=== PATIENT | female | born 1960 | race Caucasian/White ===

== ENCOUNTER 2016-04-17 22:28 | Emergency (ER) | payer MEDICARE ==
[2016-04-17] MEDS ORDERED: 0.9% Sodium Chloride 1,000 ML IV ONE (22:40)
--- NOTE | 2016-04-17 22:43 | ED.REPORT ---
HPI-General Illness Date of Service Apr 17, 2016 ED Provider: Alfa Villarreal MD A 58 year old female with a history of previous suicide attempt via hydrocodone overdose (02/2016) presents to the ED unresponsive via private vehicle. A code BLUE was called when the patient arrived and she was rushed to a room. Her blood pressure and pulse were noted to be normal. The patient is unable to provide any meaningful history, although she responds to verbal stimuli. The patient's roommate is concerned that she may have "taken a bunch of pills." Nursing Notes Stated Complaint: OVERDOSE Nursing Notes Reviewed: Yes Allergies: Coded Allergies: salicylates (Verified Allergy, Unknown, unknown, 04/17/16) General Time Seen by MD: 22:29 Chief Complaint Other (Unresponsive) Hx Obtained From: Other family... (Roommate) Unable to Obtain Hx: Patient condition, Mental status Arrived By: Walk-in Sudden in Onset?: Yes Onset Occurred: Just prior to arrival Symptom Duration: Since onset Associated with: Denies: Fever Pertinent Negative: Relieved by nothing Context Related History: Reports Psychiatric history Recent Healthcare: Recent hospitalization Similar Sx Previous: Yes Past Medical History Past Medical History Suicide attempt by hydrocodone overdose (02/2016) Past Surgical History None reported Smoking History Unknown if Ever Smoker Social History Other Social History: Good social support Ambulatory Status Independent Review of Systems Unable to Obtain ROS Patient condition, Mental status Physical Exam Vital Signs Vital Signs Date Time Temp Pulse Resp B/P Pulse Ox O2 Delivery O2 Flow Rate FiO2 04/18/16 03:23 90 11 146/79 100 Room Air 04/17/16 23:10 36.0 92 11 166/88 100 Room Air Initial VS: Reviewed ENT: Conjunctiva normal, No scleral icterus Respiratory: Breath sounds normal, Clear to auscultation, No respiratory distress Cardiovascular: Regular rate & rhythm, Heart sounds normal Abdomen / GI: Soft, Non-tender Skin: Warm, Dry Alertness: Positive: Responds to verb stimuli Distress / Hydration: Positive: Dehydration mild Head / Eyes: Atraumatic, Normocephalic Eye Movement: Positive: Nystagmus present Pupils 4mm bilaterally Mental Status: Positive: Responds to verbal stim Drowsy but arousable Interpretation & Diagnostics URINE : Negative URINE DIPSTICK: 1.000 sp gravity 7 pH Trace Leukocytes Trace Protein Normal Glucose 4mg/dl Urobilinogen + Bilirubin Otherwise Negative URINE DRUG SCREEN: + Opiates Otherwise Negative Lab Results Interpretation Result Diagram: 04/17/16223904/17/162239 Test 04/17/16 22:40 04/17/16 22:44 04/17/16 22:59 White Blood Count 7.3th/mm3 (3.8-10.1) Red Blood Count 4.48mil/mm3 (3.90-5.20) Hemoglobin 13.1g/dL (12.0-15.6) Hematocrit 40.2% (35.0-46.0) Mean Corpuscular Volume 89.7fL (81-100) Mean Corpuscular Hemoglobin 29.2pg (27.0-35.0) Mean Corpuscular Hemoglobin Concent 32.6% (32.0-37.0) Red Cell Distribution Width 13.0% (12.3-15.4) Platelet Count 306bil/L (150-400) Sodium Level 139mEq/L (134-144) Potassium Level 3.6mEq/L (3.5-5.2) Chloride Level 99mEq/L (97-108) Carbon Dioxide Level 25mmol/L (18-29) Blood Urea Nitrogen 10mg/dL (6-24) Creatinine 0.83mg/dL (0.57-1.00) Estimat Glomerular Filtration Rate 103mL/min (>59) Glucose Level 115mg/dL (60-99) Calcium Level 9.2mg/dL (8.5-10.1) Total Bilirubin 0.2mg/dL (0.0-1.2) Aspartate Amino Transf (AST/SGOT) 20U/L (0-50) Alanine Aminotransferase (ALT/SGPT) 18U/L (0-32) Alkaline Phosphatase 71U/L (25-150) Total Protein 7.7g/dL (6.4-8.4) Albumin 4.6g/dL (3.4-5.0) Salicylates Level < 3.0ug/mL (30-250) Acetaminophen Level < 15.0ug/mL Rx (10-25) Alcohol, Quantitative < 10mg/dL (0-10) Hold Purple Top Tube Received (Received) Hold Blue Top Tube Received (Received) Hold Red Top Tube Received (Received) Hold [place] Top Tube Received (Received) Hold Contreras Top Tube Received (Received) Hold Urine Received (Received) ECG Interpretation ECG Interpretation: Sinus rhythm rate 86 Left axis deviation Time: 22:52 Interpreted by: ED physician Re-Eval/Medical Decision Med Decision/Clinical Course Patient brought in unresponsive after a possible overdose, found to not a taken an overdose, and to have had a prior admission with a hysterical conversion reaction and catatonia. This appears to be the case tonight. Worsening, however, she has responded to watch for bleeding and is now up talking and reasonably conversant. She denies taking an overdose, denies suicidal ideation, denies any recollection of things at the start of her episode, but acknowledges that this is happened to her before, resulting in that prior hospitalization. We talked for quite a while about the issues troubling her at the moment, and this particular mode of coping. She needs counseling help and understands that. She is referred via crisis to [facility]. Discharged now in stable and improved condition. Time of Eval: 22:37 Patient Status: Condition improved Re-Evaluation/Progress Note: Patient has become more responsive. She denies consuming medication, drugs, or alcohol this evening. Time of Eval: 22:45 Patient Status: Condition improved Re-Evaluation/Progress Note: Discussed patient's case with her boyfriend and roommate. Additional history obtained. Five weeks ago the patient was admitted to the hospital in [place], [place] for a similar episode of unresponsiveness with no known cause. This was after her recent suicide attempt. Time of Eval: 22:47 Patient Status: Condition improved Re-Evaluation/Progress Note: Narcan administered with no response. Time of Eval: 00:02 Patient Status: Condition improved Re-Evaluation/Progress Note: Patient opens her eyes and murmurs but continues to be excessively drowsy. Time of Eval: 02:20 Patient Status: Condition improved Re-Evaluation/Progress Note: Patient rechecked. She has fully regained consciousness. Had an in depth conversation regarding patient's lab results, diagnosis, and plan for discharge. Follow-up and return to the ER instructions given. Patient agrees with plan for care and all questions were addressed. Time of Eval: 02:48 Patient Status: Condition improved Re-Evaluation/Progress Note: Patient's roommate is concerned about the patient's ability to return home. Patient is road tested and able to get up and walk. She feels capable of getting home and into bed. Patient and her roommate agree with plan for care and all questions were addressed. Counseled Regarding: Diagnosis, Lab results, Need for follow-up, When/why to return to ED Discharge & Departure Primary Impression: Conversion reaction Additional Impression: Reactive depression (situational) Disposition: Home Discharge Condition All VS Reviewed: Yes Condition: Improved Patient Instructions: Major Depression (GEN) Additional Instructions: Call crisis at [phone] for triage and referrals for mental health counseling. Follow-up with your family doctor. Your doctor can also refer you for services. Return any time for immediate difficulties. Good luck with your current issues. Referrals: NOPCP (PCP) [facility] Scribe Attestation Portions of this note were transcribed by Kathi Dennison. I, Dr. Villarreal, personally performed the history, physical exam, and medical decision-making; I reviewed and confirmed the accuracy of the information in the transcribed note. Signed by: Anthony Cain, 04/18/2016, 03:45 copies to: [facility] Alfa Villarreal MD Apr 17, 2016 22:43 KATHI DENNISON Apr 17, 2016 23:06
[2016-04-17 22:59] LABS: Mean Corpuscular Hemoglobin 29.2 pg (27.0-35.0); Mean Corpuscular Volume 89.7 fL (81-100)
[2016-04-17 23:10] VITALS: BP 166/88; PULSE 92; RESP 11; O2SAT 100
[2016-04-18] MEDS ORDERED: Ondansetron 2 mg/mL 2 mL Inj ONE (02:35)
[2016-04-18 03:23] VITALS: BP 146/79; PULSE 90; RESP 11; O2SAT 100
== END 2016-04-18 02:53 | disposition home or self-care (01) ==
LOC: SED 22:28
DX: F44.9 Dissociative and conversion disorder, unspecified (principal); F43.21 Adjustment disorder with depressed mood; Z91.5 Personal history of self-harm; Z88.8 Allergy status to other drugs, medicaments and biological substances
CPT/HCPCS: 36415; 51702; 80053; 81002; 81025; 85027; 93005; 94799; 99285; G0480; J7030

== ENCOUNTER 2016-04-18 14:17 | Emergency (ER) | payer MEDICARE ==
[2016-04-18 14:28] VITALS: BP 140/81; PULSE 94; RESP 12; O2SAT 94
--- NOTE | 2016-04-18 14:58 | ED.REPORT ---
HPI-Psychiatric Illness Date of Service Apr 18, 2016 ED Provider: MD Amie This is a 55 year old female with a histroy of previous suicide attempt via hydrocodone overdose (02/2016) presenting to the emergency department due to psychiatric concerns. Pt is unaware of how or why she is in the ED today. However, she states she wants us to "just make it better." She denies drug use, EtOH consumption, suicidal ideation, homicidal ideation, or hallucinations. Pt was in the ED yesterday evening for possible drug overdose, she was discharged with diagnosis of conversion reaction and catatonia. At that time she had unremarkable CBC, CMP, normal salicylates, normal Tylenol, and a normal ECG. Pt' s roommate reports that pt was slumped over the toilet and she was unable to lift her and consequently called emergency services. Nursing Notes Stated Complaint: DECREASED LOC Chief Complaint: Psychiatric Complaint Nursing Notes Reviewed: Yes Allergies: Coded Allergies: salicylates (Verified Allergy, Unknown, unknown, 04/17/16) General Time Seen by MD: 14:57 Chief Complaint Other Hx Obtained From: Patient Arrived By: Walk-in Onset Occurred: Just prior to arrival Symptom Duration: Since onset Severity: Current: No pain currently Pertinent Negative: Pt denies other symptoms Recent Healthcare: Recent doctor visit Similar Sx Previous: No Risk-Psychiatric Illness Suicide Risk Stratification Suicide Risk Factors - Adult: : Previous attemptNo: Access to firearms, Alcohol use, Substance abuse RF Statements: Risk factors reviewed Past Medical History Past Medical History Suicide attempt by hydrocodone overdose (02/2016) Past Surgical History None reported Smoking History Unknown if Ever Smoker Social History Other Social History: Good social support Ambulatory Status Independent Review of Systems Constitutional: Denies: Chills, Fever Cardiovascular: Denies: Chest pain GI: Denies: Nausea, Vomiting Psychiatric: Denies: Confusion, Depression, Hallucinations, auditory, Homicidal ideation, Suicidal ideation Complete sys rev & neg: except as marked. Physical Exam Initial Vital Signs Vital Signs (First) Date Time Temp Pulse Resp B/P Pulse Ox O2 Delivery O2 Flow Rate FiO2 04/18/16 14:28 36.8 94 12 140/81 94 Room Air Initial VS: Reviewed Head / Eyes: Atraumatic, Normocephalic, PERRL ENT: Mucous membranes moist, Conjunctiva normal, No scleral icterus Neck: Supple, Non-tender, Full range of motion Respiratory: Breath sounds normal, Clear to auscultation, No respiratory distress Cardiovascular: Regular rate & rhythm, Heart sounds normal, Intact distal pulses Abdomen / GI: Soft, Non-tender, No guarding, No rebound, No distention Extremities: Vascular intact, Neuro intact, No swelling, No tenderness Skin: Warm, Dry, No cyanosis General/Constitutional: Awake, Alert Neurologic: Oriented X3, Speech NL, No motor deficits, No sensory deficits, Memory NL Psychiatric: Not suicidal, Not homicidal Abnormal Mood/Affect: Positive: Flat affect Slow speech, linear and organized, pt does not know why she is here and wants us to "make it better." Oriented to place and time. Interpretation & Diagnostics BRAIN CT IMPRESSION: No acute intracranial process. Dictated by: Angie Bartholomew M.D. on 04/18/2016 at 18:06 Approved by: Angie Bartholomew M.D. on 04/18/2016 at 18:07 Lab Results Interpretation Result Diagram: 04/18/16 1650 04/18/16 1650 Test 04/18/16 15:37 04/18/16 16:50 Hold Urine Received (Received) White Blood Count 8.4th/mm3 (3.8-10.1) Red Blood Count 4.50mil/mm3 (3.90-5.20) Hemoglobin 13.1g/dL (12.0-15.6) Hematocrit 40.3% (35.0-46.0) Mean Corpuscular Volume 89.6fL (81-100) Mean Corpuscular Hemoglobin 29.1pg (27.0-35.0) Mean Corpuscular Hemoglobin Concent 32.5% (32.0-37.0) Red Cell Distribution Width 12.7% (12.3-15.4) Platelet Count 316bil/L (150-400) Neutrophils (%) (Auto) 82.4% (40-74) Lymphocytes (%) (Auto) 12.6% (14-46) Monocytes (%) (Auto) 4.4% (4-12) Eosinophils (%) (Auto) 0% (0-5) Basophils (%) (Auto) 0.4% (0-3) Sodium Level 138mEq/L (134-144) Potassium Level 3.7mEq/L (3.5-5.2) Chloride Level 100mEq/L (97-108) Carbon Dioxide Level 23mmol/L (18-29) Blood Urea Nitrogen 6mg/dL (6-24) Creatinine 0.79mg/dL (0.57-1.00) Estimat Glomerular Filtration Rate 109mL/min (>59) Glucose Level 115mg/dL (60-99) Calcium Level 9.2mg/dL (8.5-10.1) Total Bilirubin 0.2mg/dL (0.0-1.2) Aspartate Amino Transf (AST/SGOT) 17U/L (0-50) Alanine Aminotransferase (ALT/SGPT) 20U/L (0-32) Alkaline Phosphatase 66U/L (25-150) Total Protein 6.9g/dL (6.4-8.4) Albumin 4.4g/dL (3.4-5.0) Thyroid Stimulating Hormone (TSH) 1.420uIU/mL (0.450-4.500) Hold Contreras Top Tube Received (Received) Salicylates Level < 3.0ug/mL (30-250) Acetaminophen Level < 15.0ug/mL Rx (10-25) Alcohol, Quantitative < 10mg/dL (0-10) Re-Eval/Medical Decision Med Decision/Clinical Course This is a 55 year old female with a histroy of previous suicide attempt via hydrocodone overdose (02/2016) presenting to the emergency department due to psychiatric concerns. She was seen and evaluated in this emergency department last night after initial concern for overdose. Urine drug screen was negative and Tylenol/salicylates were negative. After extensive evaluation she was thought to be experiencing a conversion disorder and was discharged. He presents back today similarly stating that she does not know why she is here and being very slow cancer questions/somnolent. She is also complaining of headache. She is afebrile with stable vital signs and denies suicidal or homicidal ideation. Laboratory studies were notable as below: CBC unremarkable chemistry unremarkable TSH within normal limits tylenol negative salicylates negative EtOH negative CT scan of the head was obtained and demonstrated no evidence of acute intracranial process. I conducted chart review and further conversation with the patient's friend and roommate's. They verified patient's history of conversion type reactions in the setting of multiple stressors including her recent divorce. They feel that she is under significant stress at this time and at this is likely the cause of her presentation. She was seen and evaluated by emergency department social service manager and continued to deny suicidal ideation. She has good social support at this time with a roommate and friends at the bedside. She is provided with outpatient resources and is now engaged with the plan and interactive with healthcare providers. I see no indication at this time she was immediate risk of harm to herself or others she has been provided with a good outpatient plan. The patient's overall presentation is most consistent with stress reaction/ conversion disorder. She was discharged in good condition. Counseled Regarding: Diagnosis, Lab results, Need for follow-up Discharge & Departure Impression: Primary Impression: Acute situational disturbance Additional Impression: Conversion reaction Disposition: Home Discharge Condition All VS Reviewed: Yes Condition: Stable Additional Instructions: Thank you for seeking care at emergency room. He was seen today because you have had episodes of acting abnormally. We think that this is a reaction to stress in your life. Our primary goal today in the ED was to evaluate you for any life-threatening conditions. Your evaluation was reassuring. You should follow-up with the resources provided by the social service manager today. You should return to the ED immediately if you develop fevers, vomiting, cough, shortness of breath, chest pain, lightheadedness, weakness, not harming yourself /others, if you feel that you are having a medical or psychiatric emergency, or any other concerning signs or symptoms. Thank you for letting us partake in your care today. Referrals: NOPCP (PCP) Scribe Attestation Portions of this note were transcribed by Mohini Pablo. I, Dr. Holloway personally performed the history, physical exam and medical decision-making; I reviewed and confirmed the accuracy of the information in the transcribed note. Signed by: brenda Carranza. 04/18/2016, 11:30. Ben Holloway MD Apr 18, 2016 14:58 MOHINI PABLO Apr 18, 2016 15:36
[2016-04-18 16:15] VITALS: BP 128/76; PULSE 95; O2SAT 100
[2016-04-18 17:15] LABS: BASOPHILS % (AUTO) 0.4 % (0-3); EOSINOPHILS % (AUTO) 0 % (0-5); MONOCYTES % (AUTO) 4.4 % (4-12); Mean Corpuscular Hemoglobin 29.1 pg (27.0-35.0); Mean Corpuscular Volume 89.6 fL (81-100); NEUTROPHILS % (AUTO) 82.4 % (40-74); Platelet Count 316 bil/L (150-400)
--- NOTE | 2016-04-18 18:08 | DRSVH ---
PROCEDURE: CT BRAIN WITHOUT CONTRAST ([id number]) INDICATIONS: headache TECHNIQUE: Noncontrast 4.5 mm thick angled axial sections acquired from the foramen magnum to the vertex, with c oronal reformats. COMPARISON: None. FINDINGS: Image quality: Excellent. CSF spaces: Basal cisterns are patent. No extra-axial fluid collections. Ventricles are normal in size and shape. Brain: No midline shift. No intracranial masses or hemorrhage. Llanos-white matter interface is norm al. Skull and face: Calvarium and visualized facial bones are intact, without suspicious lesions. Sinuses: Visualized sinuses and mastoids are clear. IMPRESSION: No acute intracranial process. Dictated by: Angie Bartholomew M.D. on 04/18/2016 at 18:06 Approved by: Angie Bartholomew M.D. on 04/18/2016 at 18:07
[2016-04-18 18:55] VITALS: BP 121/69; PULSE 89; O2SAT 98
[2016-04-18 20:13] VITALS: BP 130/63; PULSE 71; O2SAT 97
[2016-04-18 20:22] VITALS: BP 130/63; PULSE 71; O2SAT 97
--- NOTE | 2016-04-18 21:09 | NUR ---
Mental Health Evaluation Kenyatta Zhong 04/18/2016 Reason for Hospital visit: Decreased LOC Precipitating Problem: Pt presented to the ED via EMS for decreased LOC. STOCK DIGGER met with Pt at bedside. Pt was seen in this ED on 04/17/2016 for a similar complaint. Pt was a poor historian and much of the following information was provided by her friend Pio. Pio reported that Pt has a history of psychosomatic reactions to stressful events in her life. Pio indicated that Pt is currently going through a divorce and has been experiencing a high level of anxiety associated with this. Pio explained that Pt tends to decompensate after she has spoken with her ex-. Pt indicated that she last spoke with her ex- two days ago and has not been feeling well ever since. Pio reported that Pt also had a stressful encounter with the leader of the divorce care group that they attend together at their judaism. Pio indicated that Pt collapsed in the car on the way back to her home from their divorce care meeting last night and he brought her here to the ED. Please see the notes from that visit for further information. Pt reported that she collapsed while on the toilet today and her roommate was concerned and called 911. Pt denied any desire to kill herself or harm anyone else. Pt denied having overdosed today and indicated that she couldn't remember what happened yesterday. Pt expressed that she just feels really, really tired today. Mental Status: Pt is a 55 year old female. Pt is moderately groomed but unkempt in appearance. Pt's eyes are closed throughout the interview. Pt's affect is blunted and her mood is depressed. Pt is somnolent but easy to wake up to talk. Pt's speech is low in volume, slow in speed and her responses are somewhat latent. Pt is A/O x3. Pt's thought process is somewhat confused but linear. Pt denies SI, HI and A/V H. Psychiatric Hx: Pt reported one previous hospitalization at [facility] in [place] in January of 2016. Pt is not currently enrolled in outpatient mental health treatment because she just moved to [facility] about a month ago. Pt indicated that she has 7been working on getting her disability benefits transferred to [place] and explained that her new insurance kicks in on 04/24/2016. Pt reported that she has been taking Buspirone and Effexor. Pt explained that she did not feel that her medications were effectively managing her symptoms. CD Hx: Pt reported that she uses medical THC for pain. Pt indicated that she last used THC a week ago. Pt's BAL was 0 and her UTOX was negative at the time of arrival to the ED. Legal Hx: Pt reported that she is currently getting . Pt reported no other legal history. Diagnosis: F32.9 - Unspecified Depressive Disorder Disposition: Pt denies current SI, HI and A/V H. Pt is not gravely disabled due to mental illness. Pt does not pose an imminent risk of harm to herself or others. Pt does not meet the necessary acuity for inpatient psychiatric hospitalization at this time. STOCK DIGGER provided Pt with a list of local outpatient mental health treatment providers and explained how to access those services. Pt indicated that she felt safe to discharge home tonight and was agreeable to return to the ED if she felt unable to remain safe. STOCK DIGGER conferred with ED MD and the decision was made to discharge Pt. Pt indicated that she was agreeable to this plan. Pt to enroll in outpatient mental health treatment. Pt to return to the ED if she feels unable to remain safe. JOSELUIS Rich, AAC
--- NOTE | 2016-04-19 05:45 | NUR ---
ANNAMARIA cancelled on 04/17/[address] Villarreal informed
== END 2016-04-18 20:24 | disposition home or self-care (01) ==
LOC: EDBD 14:17 → SED 14:17
DX: F43.0 Acute stress reaction (principal); F44.9 Dissociative and conversion disorder, unspecified; R51 Headache; Z88.8 Allergy status to other drugs, medicaments and biological substances
CPT/HCPCS: 36415; 70450; 80053; 81025; 84443; 85025; 99284; G0480